=== PATIENT | female | born 1965 | race African-American/Black ===

== ENCOUNTER 2017-02-21 05:30 | Day surgery (SDC) | payer OTHER ==
[2017-02-21 06:50] LABS: HCG UR QUAL NEGATIVE
[2017-02-21] MEDS ORDERED: LACTATED RINGERS 1,000 ML IV ONE ×2 (07:15→07:25)
[2017-02-21] MEDS ORDERED: MIDAZOLAM 2 MG/2 ML VIAL IVP ONE (07:50)
[2017-02-21] MEDS ORDERED: fentaNYL 100 MCG/2 ML VIAL IVP ONE (07:50)
[2017-02-21] MEDS ORDERED: ONDANSETRON 4 MG/2 ML VIAL ONE (08:40)
[2017-02-21 09:09] VITALS: BP 123/74
== END 2017-02-21 05:31 | disposition home or self-care (01) ==
LOC: SDS 05:30
PROVIDERS: ATTEND Surgery
PROC: 0DBL8ZX Excision of Transverse Colon, Via Natural or Artificial Opening Endoscopic, Diagnostic (ICD-10-PCS; principal; 2017-02-21 07:30)
DX: Z12.11 Encounter for screening for malignant neoplasm of colon (principal); K63.5 Polyp of colon; K57.30 Diverticulosis of large intestine without perforation or abscess without bleeding; E11.9 Type 2 diabetes mellitus without complications; I10 Essential (primary) hypertension; E78.00 Pure hypercholesterolemia, unspecified; E78.5 Hyperlipidemia, unspecified; Z79.84 Long term (current) use of oral hypoglycemic drugs; Z88.0 Allergy status to penicillin
CPT/HCPCS: 45380; 81025; J7120; 88305

== ENCOUNTER 2019-07-07 21:22 | Emergency (ER) | payer OTHER ==
--- NOTE | 2019-07-07 21:37 | ED Physician Documentation ---
PD HPI FEMALE - Stated complaint Stated Complaint: FEM - Chief complaint Chief Complaint: Abd Pain - History obtained from History obtained from: Patient - History of Present Illness Timing - onset: How many days ago (3-4) Timing - duration: Days (had UTI symptoms about 2 weeks ago and Rx Macrobid 06/23. She says felt improved for awhile, but with same symptoms now the past several days. Also complains of some burning and itching in vaginal area.) Timing - details: Gradual onset Associated symptoms: Urinary frequency. No: Fever, Vaginal discharge (but feeling of some buring and itching.), Genital sore/lesion Contributing factors: No: Exposed to STD Similar symptoms before: Diagnosis (UTI couple weeks ago in [facility]. Unknown if culture done.) Recently seen: Clinic (2 weeks ago) Review of Systems Constitutional: denies: Fever, Chills Nose: denies: Rhinorrhea / runny nose, Congestion Throat: denies: Sore throat Respiratory: denies: Cough GI: denies: Abdominal Pain, Nausea, Vomiting, Diarrhea : reports: Dysuria. 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 - Present Medications Home Medications: Ambulatory Orders Medication Instructions Recorded Confirmed Cyanocobalamin (Vitamin B-12) 1 tab ORAL DAILY 02/21/17 02/21/17 [Vitamin B-12] Metformin HCl 1 tab ORAL DAILY 02/21/17 02/21/17 [place]-3/Dha/Epa/Fish Oil [Fish Oil 1 tab ORAL DAILY 02/21/17 02/21/17 EC 1,000 mg Softgel] Pravastatin Sodium [Pravachol] 1 tab ORAL DAILY 02/21/17 02/21/17 lisinopriL [Lisinopril] 1 tab ORAL DAILY 02/21/17 02/21/17 Fluconazole [Diflucan] 150 mg PO Q3D #2 tablet 07/07/19 Phenazopyridine HCl [Pyridium] 100 mg PO TID PRN #15 tablet 07/07/19 Sulfamethox/Trimeth 800/160 1 each PO BID #14 tablet 07/07/19 [Bactrim Ds 800/160] - Allergies Allergies/Adverse Reactions: Allergies Allergy/AdvReac Type Severity Reaction Status Date / Time Penicillins Allergy Hives Verified 07/07/19 21:34 PD ED PE NORMAL - Vitals Vital signs reviewed: Yes - General General: Alert and oriented X 3, No acute distress, Well developed/nourished - Abdomen Abdomen: Soft, Non tender - Female Female : Residence Manager present, Other (some redness of vaginal forbes. Mild white discharge. There is also some yellow discharge near posterior vault and cervix. Mild cervicitis noted. ) - Rectal Rectal: Deferred - Back Back: No CVA TTP Results - Vitals Vitals: Vital Signs - 24 hr 07/07/19 07/07/19 21:31 23:08 Temperature 36.3 C L 36.6 C Heart Rate 69 77 Respiratory 16 18 Rate Blood Pressure 133/81 H 122/86 H O2 Saturation 98 98 Oxygen O2 Source Room air - Labs Labs: Laboratory Tests 07/07/19 21:35 Urine Color YELLOW Urine Clarity CLOUDY Urine pH 5.5 Ur Specific [place] 1.010 Urine Protein NEGATIVE Urine Glucose (UA) NEGATIVE Urine Ketones NEGATIVE Urine Occult Blood NEGATIVE Urine Nitrite POSITIVE H Urine Bilirubin NEGATIVE Urine Urobilinogen 1 (NORMAL) Ur Leukocyte Esterase SMALL H Urine RBC 0-5 Urine WBC 11-25 H Ur Squamous Epith Cells RARE Squamous Urine Bacteria Few Ur Microscopic Review INDICATED Urine Culture Comments INDICATED PD MEDICAL DECISION MAKING - ED course Complexity details: considered differential (has UTI by UA. Also some discharge on pelvic c/w some yeast. Some yellow discharge as well, so got STD and BV tests. I do not have access to the base lab results so unable to know results of the urine culture from 2 weeks ago. Will empirically treat with a different antibiotic. ), d/w patient Departure - Departure Disposition: 01 Home, Self Care Clinical Impression: Dysuria, Yeast vaginitis Condition: Stable Record reviewed to determine appropriate education?: Yes Instructions: ED UTI Cystitis Female, ED Vaginal Infec Fungal Gela Prescriptions: Fluconazole [Diflucan] 150 mg PO Q3D #2 tablet Phenazopyridine HCl [Pyridium] 100 mg PO TID PRN #15 tablet PRN Reason: Abdominal Pain Sulfamethox/Trimeth 800/160 [Bactrim Ds 800/160] 1 each PO BID #14 tablet Comments: Your urine test does show signs of an infection again. Take Bactrim antibiotic twice daily for a week for that. You can use phenazopyridine to help with urinary discomfort as well. It does look likely to be a yeast infection vaginally as well. We gave you an antifungal tablet here tonight and take another 1 every third day for 2 more doses for that. We did do some culture swabs of the vaginal area and will call you if there is signs of any other infection or if the antibiotic we pick for the bladder infection shows resistance. The culture results will result in about 1 to 2 days. Discharge Date/Time: 07/07/19 23:10
[2019-07-07 21:46] LABS: BILIRUBIN,URINE NEGATIVE (NEGATIVE); GLUCOSE, URINE (UA) NEGATIVE (NEGATIVE); KETONES,URINE (UA) NEGATIVE (NEGATIVE); LEUKOCYTE ESTERASE, URINE SMALL (NEGATIVE); NITRITE,URINE POSITIVE (NEGATIVE); OCCULT BLOOD,URINE NEGATIVE (NEGATIVE); PH,URINE 5.5 PH (5.0-7.5); PROTEIN,URINE NEGATIVE (NEGATIVE); UROBILINOGEN,URINE 1 (NORMAL) E.U./dL (NORMAL)
[2019-07-07 21:48] LABS: CLARITY,URINE CLOUDY (CLEAR)
[2019-07-07 22:02] LABS: BACTERIA,URINE Few /HPF (None Seen); RBC,URINE 0-5 /HPF (0-5); SQUAMOUS EPITHELIAL CELL,UR RARE Squamous (<= Few)
[2019-07-07] MEDS ORDERED: SULFAMETH/TRIMETH DS 800/160 MG TABLET PO STA (22:49)
[2019-07-07] MEDS ORDERED: FLUCONAZOLE 100 MG TABLET PO STA (22:49)
[2019-07-07] MEDS ORDERED: PHENAZOPYRIDINE 100 MG TABLET PO STA (23:00)
[2019-07-07 23:08] VITALS: BP 122/86
[2019-07-08 10:07] LABS: CANDIDA GROUP DNA NEGATIVE (NEGATIVE); CANDIDA KRUSEI DNA NEGATIVE (NEGATIVE); TRICHOMONAS VAGINALIS DNA NEGATIVE (NEGATIVE)
[2019-07-08 22:15] LABS: TRICHOMONAS VAGINALIS DNA UNRESOLVED (NEGATIVE)
== END 2019-07-07 23:10 | disposition home or self-care (01) ==
LOC: ED 21:22
DX: R30.0 Dysuria (principal); B37.3 Candidiasis of vulva and vagina; I10 Essential (primary) hypertension; E78.00 Pure hypercholesterolemia, unspecified; E11.9 Type 2 diabetes mellitus without complications
CPT/HCPCS: 81001; 87077; 87086; 87181; 87481; 87491; 87591; 87661; 87801; 99283; 99284; A9270; 81003

== ENCOUNTER 2023-10-22 15:20 | Outpatient (CLI) | payer OTHER ==
--- NOTE | 2023-10-22 17:31 | Ultrasound Report ---
PROCEDURE: Pelvic w/Transvaginal INDICATIONS: OVARIAN CYST TECHNIQUE: Real-time scanning was performed of the pelvic organs, with image documentation. Additional endovagi nal scanning was necessary due to incomplete visualization of the adnexal and endometrial structures by transabdominal scanning. COMPARISON: None. FINDINGS: Uterus: Uterus is anteverted and normal in size at 8.0 x 4.9 x 4.4 cm. The myometrium is heterogene ous. The endometrium measures 4 mm in combined thickness. Within the right anterior submucosal nataliia on there is a 26 x 27 x 23 mm focus of echogenicity. Nabothian cysts are present Ovaries: The right ovary measures 1.3 x 1.2 x 1.4 cm, with a calculated ovarian volume of 1.1 cc. T he left ovary measures 1.7 x 1.0 x 1.7 cm, with a calculated ovarian volume of 1.5 cc. The ovaries h ave a normal sonographic appearance. Less than 12 follicles can be seen in each ovary. No adnexal m asses are seen. No cystic lesions measuring greater than 3 cm. Other: No pathologic free abdominal or pelvic fluid. IMPRESSION: No visualized ovarian cyst. Nabothian cysts as well as uterine fibroid. Reviewed by: Brielle Salmon MD on 10/22/2023 5:30 PM PDT Approved by: Brielle Salmon MD on 10/22/2023 5:30 PM PDT Station ID: [id number]
== END 2023-10-22 15:21 | disposition home or self-care (01) ==
LOC: DI 15:20
PROVIDERS: ATTEND Family Medicine
DX: N88.8 Other specified noninflammatory disorders of cervix uteri (principal); D25.9 Leiomyoma of uterus, unspecified

== ENCOUNTER 2023-11-14 12:19 | Emergency (ER) | payer OTHER ==
[2023-11-14 12:45] VITALS: BP 149/86; O2SAT 100
--- NOTE | 2023-11-14 12:56 | ED Physician Documentation ---
PD HPI WOUND RECHECK - Stated complaint Stated Complaint: R ARM SWELLING - Chief complaint Chief Complaint: Wound - Histroy obtained from History obtained from: Patient (She was in her garage cooking yesterday and was bitten by mosquito on the right forearm. Now she is worried because the entire forearm is swollen and itchy. 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 - Present Medications Home Medications: Ambulatory Orders Medication Instructions Recorded Confirmed Cyanocobalamin (Vitamin B-12) 1 tab ORAL DAILY 02/21/17 02/21/17 [Vitamin B-12] Metformin HCl 1 tab ORAL DAILY 02/21/17 02/21/17 [place]-3/Dha/Epa/Fish Oil [Fish Oil 1 tab ORAL DAILY 02/21/17 02/21/17 EC 1,000 mg Softgel] Pravastatin Sodium [Pravachol] 1 tab ORAL DAILY 02/21/17 02/21/17 lisinopriL [Lisinopril] 1 tab ORAL DAILY 02/21/17 02/21/17 Fluconazole [Diflucan] 150 mg PO Q3D #2 tablet 07/07/19 Phenazopyridine HCl [Pyridium] 100 mg PO TID PRN #15 tablet 07/07/19 Sulfamethox/Trimeth 800/160 1 each PO BID #14 tablet 07/07/19 [Bactrim Ds 800/160] Clobetasol 0.05% Oint [Temovate 1 applic TOP BID #30 ml 11/14/23 0.05% Oint] - Allergies Allergies/Adverse Reactions: Allergies Allergy/AdvReac Type Severity Reaction Status Date / Time Penicillins Allergy Hives Verified 11/14/23 12:33 - Social History Does the pt smoke?: No Smoking Status: Never smoker Does the pt drink ETOH?: No Does the pt have substance abuse?: No - Immunizations Immunizations are current?: Yes - POLST Patient has POLST: No PD ED PE NORMAL - Vitals Vital signs reviewed: Yes - General General: Alert and oriented X 3, No acute distress - Extremities Extremities: Other (There appears to be a mosquito bite on the posterolateral proximal forearm with some forearm swelling. No cellulitis. Full range of motion at the elbow and wrist.) - Neuro Neuro: Alert and oriented X 3, Normal speech Results - Vitals Vitals: Vital Signs - 24 hr 11/14/23 12:34 Temperature 36.8 C Heart Rate 70 Respiratory 16 Rate Blood Pressure 149/86 H O2 Saturation 100 Oxygen O2 Source Room air PD Medical Decision Making - ED course ED course: 58-year-old woman with local reaction to an insect bite. She is administered Decadron here with topical steroids home-going. No EMC present. Departure - Departure Disposition: Home, Self Care Clinical Impression: Mosquito bite Qualifiers: Encounter type: initial encounter Qualified Code(s): W57.XXXA - Bitten or stung by nonvenomous insect and other nonvenomous arthropods, initial encounter Condition: Good Record reviewed to determine appropriate education?: Yes Instructions: ED Bite Mosquito Prescriptions: Clobetasol 0.05% Oint [Temovate 0.05% Oint] 1 applic TOP BID #30 ml Comments: You are having a localized allergic reaction to a mosquito bite. You received an oral dose of steroids here and a prescription for topical steroids. This will not completely cure you, there will still be some swelling and itching, return if you worsen but at this point I expect you to improve completely with time.
[2023-11-14] MEDS: CHERRY SYRUP 10 ML UDC PO ONE (12:59)
[2023-11-14] MEDS: DEXAMETHASONE 10 MG/ML VIAL PO STA (12:59)
== END 2023-11-14 13:03 | disposition home or self-care (01) ==
LOC: ED 12:19
DX: S50.861A Insect bite (nonvenomous) of right forearm, initial encounter (principal); W57.XXXA Bitten or stung by nonvenomous insect and other nonvenomous arthropods, initial encounter; Y93.G3 Activity, cooking and baking; Y92.015 Private garage of single-family (private) house as the place of occurrence of the external cause; I10 Essential (primary) hypertension; E78.00 Pure hypercholesterolemia, unspecified; E11.9 Type 2 diabetes mellitus without complications; Z79.899 Other long term (current) drug therapy; Z79.84 Long term (current) use of oral hypoglycemic drugs
CPT/HCPCS: 99283; A9270

== ENCOUNTER 2023-12-29 22:19 | Observation (INO) | payer OTHER ==
--- NOTE | 2023-12-29 23:17 | ED Physician Documentation ---
History of Present Illness - Stated complaint Stated Complaint: SWOLLEN LIPS - Chief complaint Chief Complaint: Allergic Rx - History obtained from History obtained from: Patient - Additonal information Additional information: 58-year-old woman on lisinopril for over 10 years presents with lip swelling tonight starting at 7 PM with associated tickle in the throat, nonproductive cough. Denies shortness of breath, but does endorse some itching sensation and has some mild rash on her lower abdomen. denies cp, dizziness, nausea. no known allergen exposure. 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 - Present Medications Home Medications: Ambulatory Orders Medication Instructions Recorded Confirmed Cyanocobalamin (Vitamin B-12) 1 tab ORAL DAILY 02/21/17 12/29/23 [Vitamin B-12] Metformin HCl 1 tab ORAL BID 02/21/17 12/29/23 [place]-3/Dha/Epa/Fish Oil [Fish Oil 1 tab ORAL DAILY 02/21/17 12/29/23 EC 1,000 mg Softgel] Pravastatin Sodium [Pravachol] 1 tab ORAL DAILY 02/21/17 12/29/23 lisinopriL [Lisinopril] 5 mg ORAL DAILY 02/21/17 12/29/23 - Allergies Allergies/Adverse Reactions: Allergies Allergy/AdvReac Type Severity Reaction Status Date / Time Penicillins Allergy Hives Verified 12/29/23 22:29 - Social History Does the pt smoke?: No Smoking Status: Never smoker Does the pt drink ETOH?: No Does the pt have substance abuse?: No - Immunizations Immunizations are current?: Yes - POLST Patient has POLST: No PD ED PE NORMAL - Vitals Vital signs reviewed: Yes - General General: Alert and oriented X 3, No acute distress, Well developed/nourished - HEENT HEENT: Atraumatic, PERRL, EOMI, Moist mucous membranes, Pharynx benign, Other (profound swelling to upper and lower lips) - Neck Neck: Supple, no meningeal sign, Other (good air flow on auscultation of upper airways. normal voice quality) - Cardiac Cardiac: RRR - Respiratory Respiratory: No respiratory distress, Clear bilaterally - Derm Derm: Normal color, Warm and dry, Other (raised erythematous blanching rash to lower abdomen) Results - Vitals Vitals: Vital Signs - 24 hr 12/29/23 12/30/23 22:29 00:12 Temperature 36.5 C Heart Rate 108 H 87 Respiratory 18 20 Rate Blood Pressure 125/85 H 115/78 O2 Saturation 98 100 Oxygen O2 Source Room air - Labs Labs: Laboratory Tests 12/29/23 12/29/23 23:25 23:25 WBC 5.3 RBC 4.34 Hgb 13.4 Hct 40.8 MCV 94.0 MCH 30.9 MCHC 32.8 RDW 11.5 L Plt Count 235 MPV 10.0 Neut # (Auto) 3.3 Lymph # (Auto) 1.3 L [place] # (Auto) 0.6 Eos # (Auto) 0.1 Baso # (Auto) 0.0 Absolute Nucleated RBC 0.00 Band Neuts % (Manual) Not Reportable Abnorm Lymph % (Manual) Not Reportable Nucleated RBC % 0.0 Neutrophils # (Manual) Not Reportable Lymphocytes # (Manual) Not Reportable Monocytes # (Manual) Not Reportable Eosinophils # (Manual) Not Reportable Basophils # (Manual) Not Reportable Differential Comment MANUAL=AUTO DIFF Manual Slide Review Indicated Platelet Estimate NORMAL (130-450,000) Platelet Morphology NORMAL APPEARANCE RBC Morph Micro Appear NORMAL APPEARANCE Sodium 135 Potassium 4.3 Chloride 98 L Carbon Dioxide 29 Anion Gap 8.0 BUN 17 Creatinine 0.6 Estimated GFR (MDRD) 125 Glucose 165 H Calcium 10.0 Total Bilirubin 0.5 AST 167 H ALT 136 H Alkaline Phosphatase 142 H Total Protein 7.9 Albumin 4.3 Globulin 3.6 Albumin/Globulin Ratio 1.2 Lipase 23 PD Medical Decision Making - ED course ED course: 58-year-old woman presents with likely SUSHMA inhibitor induced angioedema tonight starting at 7 PM. 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 Patient's rash resolved after 3 hours of monitoring but she still has lip swelling. plan to admit to bservation. d/w Dr. Espinoza. Departure - Departure Disposition: ED Place in Observation Clinical Impression: Angioedema Condition: Stable Forms: PCP List
[2023-12-29] MEDS ORDERED: TRANEXAMIC ACID 1,000 MG/10 ML VIAL ONE (23:28)
[2023-12-29 23:29] LABS: BASOPHILS % (AUTO) 0.4 %; EOSINOPHILS # (AUTO) 0.1 10^3/uL (0.0-0.7); EOSINOPHILS % (AUTO) 2.3 %; HCT - HEMATOCRIT 40.8 % (37.0-47.0); HGB - HEMOGLOBIN 13.4 g/dL (12.0-16.0); LYMPHOCYTES # (AUTO) 1.3 10^3/uL (1.5-3.5); LYMPHOCYTES % (AUTO) 25.1 %; MEAN CORPUSCULAR HEMOGLOBIN 30.9 pg (27.0-31.0); MEAN CORPUSCULAR HGB CONC 32.8 g/dL (32.0-36.0); MONOCYTES # (AUTO) 0.6 10^3/uL (0.0-1.0); MONOCYTES % (AUTO) 10.4 %; NEUTROPHILS # (AUTO) 3.3 10^3/uL (1.5-6.6); NEUTROPHILS % (AUTO) 61.6 %; PLT - PLATELET COUNT 235 10^3/uL (130-450); RED BLOOD COUNT 4.34 10^6/uL (4.20-5.40); RED CELL DISTRIBUTION WIDTH 11.5 % (12.0-15.0); WHITE BLOOD COUNT 5.3 x10^3/uL (4.8-10.8)
[2023-12-29] MEDS: diphenhydrAMINE INJ 50 MG/ML VIAL IVP STA (23:34)
[2023-12-29] MEDS: methylPREDNISolone SUCCINATE 125 MG/2 ML VIAL IVP STA (23:34)
[2023-12-29] MEDS: SODIUM CHLORIDE 0.9% 1,000 ML IV STA (23:34)
[2023-12-29] MEDS: TRANEXAMIC ACID 1,000 MG in SODIUM CHLORIDE 0.9% 100ML 100 ML IV STA (23:34)
[2023-12-29 23:40] LABS: SLIDE REVIEW? Indicated
[2023-12-29 23:43] LABS: ALBUMIN 4.3 g/dL (3.2-5.5); ALBUMIN/GLOBULIN RATIO 1.2 (1.0-2.2); BILIRUBIN,TOTAL 0.5 mg/dL (0.2-1.0); CREATININE 0.6 mg/dL (0.6-1.3); POTASSIUM 4.3 mmol/L (3.5-4.5); TOTAL PROTEIN 7.9 g/dL (6.4-8.9)
[2023-12-29 23:54] LABS: DIFFERENTIAL COMMENT MANUAL=AUTO DIFF; PLATELET ESTIMATE, MANUAL NORMAL (130-450,000) (NORMAL); PLATELET MORPHOLOGY NORMAL APPEARANCE (NORMAL); RBC MORPHOLOGY (MULTIPLE) NORMAL APPEARANCE (NORMAL)
[2023-12-30 01:52] VITALS: O2SAT 95
[2023-12-30] MEDS ORDERED: SODIUM CHLORIDE FLUSH 0.9% 10 ML SYRINGE IVP PRN (01:57)
[2023-12-30] MEDS ORDERED: ONDANSETRON 4 MG/2 ML VIAL IVP PRN (01:57)
[2023-12-30] MEDS ORDERED: ACETAMINOPHEN 325 MG TABLET PO PRN (01:57)
--- NOTE | 2023-12-30 02:06 | HISTORY & PHYSICAL EXAMINATION ---
Chief Complaint - Chief Complaint Chief Complaint: lip swelling History of Present Illness - Admitted From Admitted From:: ED - History Obtained From Records Reviewed: EMR History obtained from: ED and patient and Exam Limitations: tele medicine - History of Present Illness HPI Comment/Other: 58F c known HTN on lisinopril p/w lip swelling around 1900 after dinner. She reports no prior hx of similar event. She states no new medications. She has been on lisinopril for many years without adverse reaction. She states no new exposure. No trauma. She currently denies SOB. No URI sxs. She is able to swallow solids and liquids. In the ED, patient has been reportedly stable for couple of hours. She is on room air. She had received TXA and steroids and Benadryl. Patient states she got dizzy with Benadryl. 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 - POLST Patient has POLST: No Meds/Allgy - Home Medications Home Medications: Ambulatory Orders Medication Instructions Recorded Confirmed Cyanocobalamin (Vitamin B-12) 1 tab ORAL DAILY 02/21/17 12/29/23 [Vitamin B-12] Metformin HCl 1 tab ORAL BID 02/21/17 12/29/23 [place]-3/Dha/Epa/Fish Oil [Fish Oil 1 tab ORAL DAILY 02/21/17 12/29/23 EC 1,000 mg Softgel] Pravastatin Sodium [Pravachol] 1 tab ORAL DAILY 02/21/17 12/29/23 lisinopriL [Lisinopril] 5 mg ORAL DAILY 02/21/17 12/29/23 - Allergies Allergies/Adverse Reactions: Allergies Allergy/AdvReac Type Severity Reaction Status Date / Time Penicillins Allergy Hives Verified 12/29/23 22:29 Review of Systems - Other Findings Other Findings: negative unless mentioned differently above Exam - Vital Signs Reviewed Vital Signs: Yes Vital Signs: Vital Signs x48h Temp Pulse Resp BP Pulse Ox 12/30/23 01:49 95 16 103/66 95 12/30/23 00:12 87 20 115/78 100 12/29/23 22:29 36.5 C 108 H 18 125/85 H 98 - Physical Exam General Appearance: positive: No acute distress, Alert Eyes Bilateral: positive: Normal inspection, EOMI ENT: positive: Other (edematous lips, garble speech) Neck: positive: Nml inspection Skin: positive: Color nml, No rash Extremities: positive: Nml appearance Neurologic/Psychiatric: positive: Oriented x3, CN's nml (2-12) Conclusion/Plan - Problem List (1) Angioedema Conclusion/Plan: 2/2 lisinopril. stop lisinopril and counseled patient to not use lisinopril again. no proven treatment for lisinopril induced angioedema. patient already got TXA as off label in ED. no airway compromise and able to process secretion and stable on room air. will oblige ED request to monitor patient. Qualifiers: Encounter type: initial encounter Qualified Code(s): T78.3XXA - Angioneurotic edema, initial encounter (2) Hypertension Conclusion/Plan: stop lisinopril. cover with amlodipine. monitor blood pressure with repeat vital checks Qualifiers: Hypertension type: primary hypertension Qualified Code(s): I10 - Essential (primary) hypertension (3) Hyperlipidemia Conclusion/Plan: managed on statin therapy. can restart on discharge. (4) DM2 (diabetes mellitus, type 2) Conclusion/Plan: hold metformin while in the hospital. cover with ssi and monitor on accucheck. restart home med on discharge - Lab Results Lab results reviewed: Yes Fish Bones: 12/29/23 23:25 12/29/23 23:25 Core Measures - Anticipated LOS I expect patient to be DC'd or transferred within 96 hours.: Yes - Issues Hospital Issues and Management Plan: The patient consented to receive this telemedicine service, which I performed via live two-way audiovisual equipment. The patient is at ([facility]) and I am physically in [facility]. A nurse assisted me in the visit. Full code SCDs Observation Mayank Espinoza DO Internal Medicine Sound Physician Tele Supervisor Ticket Sales - DVT/VTE - Prophylaxis VTE/DVT Device ordered at admit?: Yes Telemedicine Consult Details - Provider Location & Consult Time Telemedicine consultation conducted via videoconferencing?: Yes List names and roles of persons who participated in consult:: ENEDINA, phoebe, carol hopkins Telemedicine provider location:: [facility] Time Telemedicine consult began:: 01:43 Time Telemedicine consult completed:: 02:28
[2023-12-30] MEDS: LORATADINE 10 MG TABLET PO SCH (03:07)
[2023-12-30] MEDS: MONTELUKAST 10 MG TABLET PO SCH (03:07)
[2023-12-30] MEDS: amLODIPine 5 MG TABLET PO SCH (08:13)
[2023-12-30] MEDS: INSULIN LISPRO 300 UNIT/3 ML PEN SUBQ SCH (08:13)
[2023-12-30 08:30] VITALS: BP 125/90
[2023-12-30] MEDS: SODIUM CHLORIDE FLUSH 0.9% 10 ML SYRINGE IVP SCH (09:18)
--- NOTE | 2023-12-30 10:00 | Discharge Plan ---
Discharge Plan Problem Reviewed?: Yes Disposition: Home, Self Care Condition: Fair Prescriptions: amLODIPine [Norvasc] 10 mg PO DAILY #30 tab Diet: Regular Activity Restrictions: No Restrictions Shower Restrictions: No Driving Restrictions: No Weight Bearing: Full Weight Health Concerns: You were admitted with swelling in your lips. The swelling has improved. It is felt to be due to Lisinopril. This should be stopped and lisinopril should be listed an allergy going forward. I am calling in a new blood pressure medication called amlodipine. You should follow up with your nutrition associate in the next week Assessment: 1. Angioedema due to lisinopril The patient states that she has had issues with allergies due to lisinopril in the past and they changed her formulation. Lisinopril should be listed as an allergy and it has been stopped. Would avoid this medication and SUSHMA inhibitor 's in general going forward. 2. Hypertension The patients lisinopril should be stopped. Amlodipine 5 mg daily has been called into her pharmacy. 3. Hyperlipidemia She should continue her home dose of pravastatin 4. Type 2 diabetes She should continue metformin 1000 mg p.o. twice daily 5. History of nephrolithiasis Quiescent 6. Elevated liver function test This should be repeated in the outpatient setting. She should follow-up with her primary care provider next week. No Smoking: If you smoke, Please STOP! Call for help. Follow-up with: NELLI BARNHART DO [Primary Care Provider] - 1 Week
--- NOTE | 2023-12-30 10:14 | DISCHARGE SUMMARY ---
Discharge Summary Admit Date: 12/30/23 Discharge Date: 12/30/23 Discharging Provider: Paige Wetzel PA-C Primary Care Provider: Dr. Zackary Anton, DO Code Status: Attempt Resuscitation Condition at Discharge: Fair Discharge Disposition: 01 Home, Self Care - DIAGNOSES Discharge Diagnoses with Status of Each Condition: 1. Angioedema due to lisinopril The patient states that she has had issues with allergies due to lisinopril in the past and they changed her formulation. Lisinopril should be listed as an allergy and it has been stopped. Would avoid this medication and SUSHMA inhibitor's in general going forward. 2. Hypertension The patients lisinopril should be stopped. Amlodipine 5 mg daily has been called into her pharmacy. 3. Hyperlipidemia She should continue her home dose of pravastatin 4. Type 2 diabetes She should continue metformin 1000 mg p.o. twice daily 5. History of nephrolithiasis Quiescent 6. Elevated liver function test This should be repeated in the outpatient setting. She should follow-up with her primary care provider next week. - HPI History of Present Illness: From the admission HP: 58F c known HTN on lisinopril p/w lip swelling around 1900 after dinner. She reports no prior hx of similar event. She states no new medications. She has be en on lisinopril for many years without adverse reaction. She states no new exposure. No trauma. She currently denies SOB. No URI sxs. She is able to swallow solids and liquids. In the ED, patient has been reportedly stable for couple of hours. She is on room air. She had received TXA and steroids and Benadryl. Patient states she got dizzy with Benadryl. - HOSPITAL COURSE Hospital Course: The patient was placed in observation in the hospital for close monitoring overnight. This morning her swelling is still present but has improved dramatically since she came to the hospital. It is felt that she has angioedema due to lisinopril. She states that she has had issues with allergic reactions to lisinopril in the past and her formulation was changed. The patient has been initiated on amlodipine for her blood pressure. Overall the patient is improving and is felt that she can safely be discharged home with close outpatient follow-up. The patient should avoid lisinopril going forward and it has been listed as an allergy in the medical record. Of note the patient does have some elevated transaminases that will need to be followed up in the outpatient setting. At this point maximum hospital benefit has been reached. The patient will be discharged today in stable condition. - ALLERGIES Allergies/Adverse Reactions: Allergies Allergy/AdvReac Type Severity Reaction Status Date / Time lisinopril Allergy Edema Verified 12/30/23 10:22 Penicillins Allergy Hives Verified 12/29/23 22:29 - MEDICATIONS Home Medications: Ambulatory Orders Medication Instructions Recorded Confirmed Cyanocobalamin (Vitamin B-12) 1 tab ORAL DAILY 02/21/17 12/29/23 [Vitamin B-12] Metformin HCl 1 tab ORAL BID 02/21/17 12/29/23 Toone-3/Dha/Epa/Fish Oil [Fish Oil 1 tab ORAL DAILY 02/21/17 12/29/23 EC 1,000 mg Softgel] Pravastatin Sodium [Pravachol] 1 tab ORAL DAILY 02/21/17 12/29/23 amLODIPine [Norvasc] 10 mg PO DAILY #30 tab 12/30/23 - PHYSICAL EXAM AT DISCHARGE General Appearance: positive: No acute distress Eyes Bilateral: positive: Normal inspection, PERRL ENT: positive: Other (Swelling of thelips but no evidence of tongue swelling or airway compromise) Neck: positive: Nml inspection Respiratory: positive: Chest non-tender, No respiratory distress, Breath sounds nml Cardiovascular: positive: Regular rate & rhythm. negative: No murmur, No gallop, Friction rub Peripheral Pulses: positive: 2+ Abdomen: positive: Non-tender, No organomegaly, Nml bowel sounds Skin: positive: Color nml, No rash, Warm, Dry Extremities: positive: Non-tender, Full ROM Neurologic/Psychiatric: positive: Oriented x3, CN's nml (2-12) - LABS Result Diagrams: 12/29/23 23:25 12/29/23 23:25 - SEPSIS Current Stage of Sepsis: Ruled out - QUALITY (Female Hip Fx Only) Was patient sent home on osteoporosis medication?: No - FOLLOW UP Follow Up: Primary care in 1 week - TIME SPENT Time Spent in Discharge (Minutes): 35
--- NOTE | 2023-12-30 10:30 | PHARMACY PROGRESS NOTE ---
- Best Possible Medication History Admit Date and Time: 12/30/23 0157 Processed by: Nursing Medications reviewed in ED?: Yes As the person ultimately responsible for medication therapy, providers are able to order a medication from an existing home medication list in [facility] via the "Reconcile Routine" prior to Confirmation of that medication by business support. Such practice is discouraged except when the physician, in their clinical judgment, deems that a medical need exists for a medication without regard to previous use.
== END 2023-12-30 10:50 | disposition home or self-care (01) ==
LOC: ED 22:19 → MS2 12-30 01:57
PROVIDERS: ADMIT Internal Medicine; ATTEND Physician Assistant
DX: T78.3XXA Angioneurotic edema, initial encounter (principal); T46.4X5A Adverse effect of angiotensin-converting-enzyme inhibitors, initial encounter; I10 Essential (primary) hypertension; E78.5 Hyperlipidemia, unspecified; E11.9 Type 2 diabetes mellitus without complications; Z79.84 Long term (current) use of oral hypoglycemic drugs; R79.89 Other specified abnormal findings of blood chemistry; Y92.009 Unspecified place in unspecified non-institutional (private) residence as the place of occurrence of the external cause
CPT/HCPCS: 36415; 80053; 83690; 85025; 96365; 96375; 99283; 99285; A9270; G0378; J1200